=== PATIENT | male | born 1980 | race Caucasian/White ===

== ENCOUNTER 2020-10-25 18:16 | Emergency (ER) | payer OTHER, SELFPAY ==
[2020-10-25 18:27] VITALS: BP 133/75; PULSE 98; RESP 16; TEMP 36.6; O2SAT 100
--- NOTE | 2020-10-25 18:37 | ED.SKABFB ---
HPI - Skin/Abscess/Foreign Bdy General Chief complaint: Skin/Abscess/Foreign Body Stated complaint: pos spider bite History of Present Illness HPI narrative: This is a 40-year-old male comes in complaining of a possible bug bite to his bilateral calfs. Patient states that he noticed them a day ago and the one on the left started having drainage. Patient denies any fever areas are sore to touch Related Data Allergies Allergy/AdvReac Type Severity Reaction Status Date / Time No Known Allergies Allergy Verified 10/25/20 18:34 Review of Systems Review of Systems: Narrative: CONSTITUTIONAL: Denies fever, chills, or sweats. EYES: Denies visual changes, redness, or discharge. ENT: Denies rhinorrhea, congestion, sore throat, or otalgia. CARDIOVASCULAR:Denies chest pain, palpitations, or edema. RESPIRATORY: Denies cough or dyspnea. GASTROINTESTINAL: Denies abdominal pain, nausea, vomiting, or diarrhea. GENITOURINARY: Denies dysuria or hematuria. SKIN:[Denies rash or itching. Bilateral leg sores MUSCULOSKELETAL:Denies back pain, joint pain, or myalgia. NEUROLOGIC: Denies headache, numbness, or weakness. PSYCHIATRIC:Denies anxiety or depression PMFSH Comments At time as signature, I have reviewed and agree with nursing past medical, social, surgical and family history. Please see nursing chart for further information. There is no relevant family history pertinent to the presenting complaint. Exam Narrative: Exam Narrative: GENERAL:Well-appearing, well-nourished, and in no acute distress. HEAD:Normocephalic, atraumatic. EYES: PERRLA and EOMI. ENT: Nares clear, no rhinorrhea or epistaxis. Mucous membranes moist. NECK: Supple. CHEST: Clear to auscultation. No respiratory distress. HEART: Regular rate and rhythm. No murmur heard. Normal peripheral pulses. ABDOMEN: Soft, nontender, nondistended, normal active bowel sounds. EXTREMITIES: Normal range of motion. No edema. Bilateral legs have multiple sores noted to the right calf has 1 large 1 that is erythema skin is still attached 1 on the left is open with small amount of drainage erythema surrounding the area multiple fine pinpoint areas on bilateral legs. Patient denies scratching or opening SKIN: Warm, dry, no rash. NEURO: No focal deficits. Alert and oriented x3. Course SPINE NURSE/PA Physician Supervision Discussed with patient care of the wound oral antibiotics will be ordered explained to them to keep the area clean and dry without and osmany areas he needs to put a Band-Aid on it triple antibiotic ointment some very small amount and continue the oral antibiotics see his primary care provider in 3 to 5 days Vital Signs Vital signs: Vital Signs Temperature 98 F 10/25/20 18:27 Pulse Rate 98 10/25/20 18:27 Respiratory Rate 16 10/25/20 18:27 Blood Pressure 133/75 10/25/20 18:27 Pulse Oximetry 100 10/25/20 18:27 Temperature 98 F 10/25/20 18:27 Pulse Rate 98 10/25/20 18:27 Respiratory Rate 16 10/25/20 18:27 Blood Pressure 133/75 10/25/20 18:27 Pulse Oximetry 100 10/25/20 18:27 MDM - Skin/Abscess/Foreign Bdy Differential Diagnosis Differential diagnosis: Likely abscess of skin or subcutaneous tissue, urticaria, allergic reaction to drug, cellulitis, insect bites, impetigo and contact dermatitis Discharge Plan Discharge Clinical Impression: Bacterial skin infection of leg Qualifiers: Laterality: unspecified laterality Qualified Code(s): L03.119 - Cellulitis of unspecified part of limb Patient Disposition: Home, Self-Care Condition: Stable Instructions: Antibiotic Form, Cellulitis (ED), Acute Wounds (ED) Additional Instructions: Use skin creams/lotion, such as those containing calamine or pramoxine to reduce itchiness Avoid scratching when possible to prevent worsening of the condition and disruption of the skin that could lead to bacterial infection To relieve itching, place a cool washcloth or some ice over the area that itches, rath
== END 2020-10-25 18:49 | disposition home or self-care (01) ==
PROVIDERS: Emergency Provider Nurse Practitioner Family
DX: L03.116 Cellulitis of left lower limb (principal); L03.115 Cellulitis of right lower limb
CPT/HCPCS: 99213; G0463

== ENCOUNTER 2021-07-23 11:18 | Emergency (ER) | payer OTHER, SELFPAY ==
[2021-07-23 11:25] VITALS: BP 124/56; PULSE 88; RESP 16; TEMP 36.1; O2SAT 99
--- NOTE | 2021-07-23 11:41 | ED.DENTAL ---
HPI - Dental/Oral General Chief complaint: Dental/Oral Stated complaint: Toothache/Sinus Pain Time Seen by Provider: 07/23/21 11:40 Source: patient Mode of arrival: ambulatory Limitations: no limitations History of Present Illness HPI Narrative: 41-year-old male presents with lower dental pain for several days. Does not have a dentist. Also reports sinus congestion, drainage for 3 days. Is not taking any medications to treat his symptoms. Denies fever chills. All systems reviewed and negative except as noted above. Related Data Allergies Allergy/AdvReac Type Severity Reaction Status Date / Time No Known Allergies Allergy Verified 07/23/21 11:40 Review of Systems Review of Systems: CONSTITUTIONAL: Denies fever, chills, or sweats. EYES: Denies visual changes, redness, or discharge. ENT: Reports rhinorrhea, congestion, sore throat. Denies otalgia. Reports dental pain. CARDIOVASCULAR: Denies chest pain, palpitations, or edema. RESPIRATORY: Denies cough or dyspnea. GASTROINTESTINAL: Denies abdominal pain, nausea, vomiting, or diarrhea. GENITOURINARY: Denies dysuria or hematuria. SKIN: Denies rash or itching. MUSCULOSKELETAL: Denies back pain, joint pain, or myalgia. NEUROLOGIC: Denies headache, numbness, or weakness. PSYCHIATRIC: Denies anxiety or depression. All other systems reviewed are negative, except as documented in HPI. PMFSH Comments At time of signature, agree with nursing past medical, surgical, social and family history. There is no relevant family history pertinent to the presenting complaint. Exam Narrative: GENERAL: This is a well-nourished, well-developed patient, in no apparent distress. HEAD: normocephalic, atraumatic. EYES: PERRL. Sclera clear/white. Vision is grossly intact. EARS: External ears normal, auditory canals clear and without drainage, TMs normal without perforation. Hearing grossly intact. NOSE: External nose normal. Clear nasal drainage, erythema to nares. THROAT: Mucous membranes moist, mild erythema to posterior pharynx with clear postnasal drainage. Tooth #22 is broken down to gumline with erythema and swelling. No fluctuance concerning for abscess. NECK: Neck supple, non-tender without lymphadenopathy, masses or thyromegaly. CARDIOVASCULAR: Regular rate and rhythm without murmurs, gallops, or rubs. RESPIRATORY: Coarse lung sounds throughout all lung barkley. Patient is a current everyday smoker. SKIN: warm, Dry, intact with no suspicious lesions or rash, good texture and turgor. NEURO: awake, alert, and oriented to person, place and time. There were no obvious focal neurologic abnormalities. EXTREMITIES: Normal range of motion. Course Course Level of Care: Express Care Visit Vital Signs Vital signs: Vital Signs Temperature 36.1 C L 07/23/21 11:25 Pulse Rate 88 07/23/21 11:25 Respiratory Rate 16 07/23/21 11:25 Blood Pressure 124/56 L 07/23/21 11:25 Pulse Oximetry 99 07/23/21 11:25 Temperature 36.1 C L 07/23/21 11:25 Pulse Rate 88 07/23/21 11:25 Respiratory Rate 16 07/23/21 11:25 Blood Pressure 124/56 L 07/23/21 11:25 Pulse Oximetry 99 07/23/21 11:25 Reviewed MDM - Dental/Oral MDM Narrative Medical decision making narrative: Patient is aware of diagnosis, understands and agrees to treatment plan. Anticipatory guidance given. Patient agrees to follow-up as directed and is aware of reasons to seek care at the emergency department. Portions of this record may have been created with voice recognition software Differential Diagnosis Differential diagnosis: Likely dental caries, toothache and dental abscess Discharge Plan Discharge Clinical Impression: Toothache Acute sinusitis Qualifiers: Sinusitis location: frontal Recurrence: not specified as recurrent Qualified Code(s): J01.10 - Acute frontal sinusitis, unspecified Patient Disposition: Home, Self-Care Condition: Stable Instructions: Sinusitis (ED), Toothache (ED) Addition
== END 2021-07-23 11:49 | disposition home or self-care (01) ==
PROVIDERS: Emergency Provider Nurse Practitioner Family
DX: K08.89 Other specified disorders of teeth and supporting structures (principal); J01.10 Acute frontal sinusitis, unspecified
CPT/HCPCS: 99213; G0463

== ENCOUNTER 2025-01-23 11:03 | Emergency (ER) | payer OTHER, SELFPAY ==
[2025-01-23 11:08] VITALS: BP 121/93; PULSE 83; RESP 16; TEMP 36.4; O2SAT 98
--- NOTE | 2025-01-23 11:15 | ED_ITS ---
HPI - Skin/Abscess/Foreign Bdy General Chief complaint: Skin/Abscess/Foreign Body Stated complaint: Skin Sore Time Seen by Provider: 01/23/25 11:15 Source: patient Mode of arrival: ambulatory Limitations: no limitations History of Present Illness HPI narrative: 44 yo M presents with c/o pain to L axilla. Was able to get out some drainage at home. States no longer draining but pain increased. Afebrile. All systems reviewed and negative except as noted above. Related Data Allergies Allergy/AdvReac Type Severity Reaction Status Date / Time No Known Allergies Allergy Verified 01/23/25 11:05 PMFSH Comments At time of signature, agree with nursing past medical, surgical, social and family history. There is no relevant family history pertinent to the presenting complaint. Exam Narrative: GENERAL: This is a well-nourished, well-developed patient, in no apparent distress. HEAD: normocephalic, atraumatic. EYES: PERRL. Sclera clear/white. Vision is grossly intact. EARS: External ears normal NOSE: External nose normal NECK: Neck supple, non-tender without lymphadenopathy, masses or thyromegaly. CARDIOVASCULAR: Regular rate and rhythm without murmurs, gallops, or rubs. RESPIRATORY: Clear to auscultation. Breath sounds equal bilaterally. No wheezes, rales, or rhonchi. SKIN: warm, Dry, intact with no suspicious lesions or rash, good texture and turgor. small abscess to L axilla. approx. 3 to 4 cm. indurated. mild erythema. no fluctuance or drainage. NEURO: awake, alert, and oriented to person, place and time. There were no obvious focal neurologic abnormalities. EXTREMITIES: No joint tenderness, effusion, or edema noted. Course Course Level of Care: Express Care Visit Vital Signs Vital signs: Vital Signs Temperature 36.4 C L 01/23/25 11:08 Pulse Rate 83 01/23/25 11:08 Respiratory Rate 16 01/23/25 11:08 Blood Pressure 121/93 H 01/23/25 11:08 Pulse Oximetry 98 01/23/25 11:08 Oxygen Delivery Room Air 01/23/25 11:08 Temperature 36.4 C L 01/23/25 11:08 Pulse Rate 83 01/23/25 11:08 Respiratory Rate 16 01/23/25 11:08 Blood Pressure 121/93 H 01/23/25 11:08 Pulse Oximetry 98 01/23/25 11:08 Oxygen Delivery Room Air 01/23/25 11:08 reviewed MDM - Skin/Abscess/Foreign Bdy MDM Narrative Medical decision making narrative: abscess not appropriate for I and D. indurated. Will treat wtih clindamycin. pt agrees with plan of care. Differential Diagnosis Differential diagnosis: Likely abscess of skin or subcutaneous tissue, cellulitis and insect bites Discharge Plan Discharge Clinical Impression: Abscess of axilla, left Patient Disposition: Home Condition: Stable Instructions: Antibiotic Form, Abscess (ED) Additional Instructions: Take antibiotic as prescribed until gone. Keep clean and dry. Apply antibiotic ointment as prescribed. See your primary care physician if not improving. Patient Language: Maori Prescriptions: New clindamycin HCl [Cleocin HCl] 300 mg capsule 300 mg PO Q8H 7 Days Qty: 21 0RF mupirocin [Centany] 2 % ointment 1 applic topical BID 7 Days Qty: 22 0RF ibuprofen 800 mg tablet 800 mg PO TID PRN (Reason: pain) Qty: 30 0RF Follow-up/Referrals: PHYSICIAN,[employer] [Primary Care Provider, Internal Medicine] Time of Disposition: 11:19
--- OUTSIDE RECORDS SUMMARY | 2025-01-23 11:56 | XMS_ITS | Patient Health Record ---
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 Name Role Phone Shanice Loydadiana Primary Care Provider [phone] Allergies No Known Allergies Reason For Referral No Information Social History Tobacco Use: Social History Observation Description Date Details (start date - stop date) Current Smoker NA - NA Sex Assigned At : Social History Observation Description Sex Assigned At Male Dont use, Tobacco Use/Smoking Question Answer Notes Are you a current every day smoker Problems Problem Type SNOMED Code ICD Code Onset Dates Problem Status W/U Status Risk Notes Problem Tobacco dependence (79741361) Tobacco dependence (F17.200) Active confirmed Problem Opioid use disorder (9687516849) Opioid use disorder (F11.99) Active confirmed Plan Of Treatment No Information Insurance Providers Payer Name Payer Address Payer Phone Subscriber Number Group Number Insured Name Patient Relationship to Insured Coverage Start Date Coverage End Date [address] [phone] [id number] Hiren Leal Self - patient is the insured 1 Medical (General) History Surgical History Surgery Date(Month/Year) left knee
== END 2025-01-23 11:27 | disposition home or self-care (01) ==
PROVIDERS: Emergency Provider Nurse Practitioner Family
DX: L02.412 Cutaneous abscess of left axilla (principal)
CPT/HCPCS: 99213; G0463